=== PATIENT | male | born 1975 | race Caucasian/White ===

== ENCOUNTER 2017-06-10 17:31 | Day surgery (SDC) | payer BC ==
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
[~2017-06-10 17:31] MED LIST: AVAPRO150 MG PO; CARTIA XT240 MG PO; NEXIUM40 MG PO; XANAX0.25 MG PO
[2017-06-10 18:36] VITALS: BMI 31.4
[2017-06-10] MEDS ORDERED: MEPERIDINE HCL50 MG PO (19:31)
[2017-06-10] MEDS ORDERED: BACTRIM DS TABL1 TAB PO (19:31)
[2017-06-10 19:49] VITALS: BP 148/80
[2017-06-10 20:00] VITALS: BP 136/82
[2017-06-10 20:30] VITALS: BP 147/85
== END 2017-06-10 20:30 | disposition home or self-care (01) ==
LOC: D.MS 17:31 → D.ER 17:31 → D.MS 17:31 → EDSTATUS 19:00 → D.MS 19:43 → D.ER 19:43 → D.MS 20:30
DX: S61.041A Puncture wound with foreign body of right thumb without damage to nail, initial encounter (principal); W38.XXXA Explosion and rupture of other specified pressurized devices, initial encounter; Y92.017 Garden or yard in single-family (private) house as the place of occurrence of the external cause; I10 Essential (primary) hypertension; Z88.1 Allergy status to other antibiotic agents; Z88.5 Allergy status to narcotic agent; Z79.899 Other long term (current) drug therapy; Z01.812 Encounter for preprocedural laboratory examination